=== PATIENT | female | born 1955 | race Caucasian/White ===

== ENCOUNTER 2017-04-01 16:11 | Emergency (ER) | payer BC ==
[2017-04-01 16:17] VITALS: BP 167/75; PULSE 89; RESP 18; TEMP 98.2
[2017-04-01] MEDS ORDERED: KETOROLAC 60 MG/2 ML VIAL IM STA (16:47)
[2017-04-01] MEDS ORDERED: ORPHENADRINE 30 MG/ML 2 ML VIAL IM STA (16:47)
--- NOTE | 2017-04-01 16:53 | ED ---
Extremity Problem HPI - General Chief complaint: Extremity Problem,Nontraumatic Stated complaint: rt knee pain Time Seen by Provider: 04/01/17 16:34 Source: patient, RN notes reviewed, old records reviewed Mode of arrival: ambulatory Limitations: no limitations - History of Present Illness Initial comments: 61-year-old female presents emergency Department chief complaint of increased right knee pain. Patient which was diagnosed with a terminal discussed. Patient states that she is supposed to see a orthopedic physician in approximately 10 days. Patient states the pain became unbearable. She reports she got her meniscus 2 weeks ago when she was going up and down the stairs while moving into a new house. Patient states that she is currently on a pain contract for chronic back pain. She states that she is taking Motrin with very little relief of her pain. Patient denies any numbness tingling, foot or ankle. Denies any significant swelling or decreased range of motion. She just reports is painful and she has to flex and extend her knee.Patient denies any recent fever, chills, shortness of breath, chest pain, back pain, abdominal pain , nausea vomiting, numbness or tingling, dysuria or hematuria, constipation or diarrhea, headaches or visual changes, or any other current symptoms - Related Data Home Medications Medication Instructions Recorded Confirmed ALPRAZolam [Xanax] 2 mg PO HS 04/01/17 04/01/17 ARIPiprazole [Abilify] 5 mg PO DAILY 04/01/17 04/01/17 DULoxetine HCL [Cymbalta] 60 mg PO DAILY 04/01/17 04/01/17 Ibuprofen [Motrin] 200 - 400 mg PO Q6HR PRN 04/01/17 04/01/17 Lisinopril [Zestril] 20 mg PO DAILY 04/01/17 04/01/17 Pantoprazole Sodium [Protonix] 40 mg PO BID 04/01/17 04/01/17 Vytorin (Unknown Dose) 1 tab PO HS 04/01/17 04/01/17 metFORMIN HCL [Glucophage] 500 mg PO BID 04/01/17 04/01/17 oxyCODONE-APAP 10-325MG [Percocet 1 tab PO QID PRN 04/01/17 04/01/17 10-325 mg] sitaGLIPtin [Januvia] 100 mg PO DAILY 04/01/17 04/01/17 Previous Rx's Medication Instructions Recorded Cyclobenzaprine [Flexeril] 10 mg PO TID #12 tab 04/01/17 Naproxen 500 mg PO TID #20 tablet 04/01/17 Allergies Allergy/AdvReac Type Severity Reaction Status Date / Time Penicillins Allergy Rash/Hives Verified 04/01/17 17:02 Review of Systems ROS Statement: Those systems with pertinent positive or pertinent negative responses have been documented in the HPI. ROS Other: All systems not noted in ROS Statement are negative. Past Medical History Past Medical History: Diabetes Mellitus Additional Past Medical History / Comment(s): chronic back pain and neck pain, diverticulosis History of Any Multi-Drug Resistant Organisms: None Reported Additional Past Surgical History / Comment(s): jaw surgery Past Psychological History: No Psychological Hx Reported Smoking Status: Never smoker Past Alcohol Use History: None Reported Past Drug Use History: None Reported General Exam - General Exam Comments Initial Comments: Well-appearing 61-year-old field. No acute distress. Limitations: no limitations General appearance: alert, in no apparent distress Head exam: Present: atraumatic, normocephalic, normal inspection Eye exam: Present: normal appearance, PERRL, EOMI. Absent: scleral icterus, conjunctival injection, periorbital swelling ENT exam: Present: normal exam, mucous membranes moist Neck exam: Present: normal inspection. Absent: tenderness, meningismus, lymphadenopathy Respiratory exam: Present: normal lung sounds bilaterally. Absent: respiratory distress, wheezes, rales, rhonchi, stridor Cardiovascular Exam: Present: regular rate, normal rhythm, normal heart sounds. Absent: systolic murmur, diastolic murmur, rubs, gallop, clicks GI/Abdominal exam: Present: soft, normal bowel sounds. Absent: distended, tenderness, guarding, rebound, rigid Extremities exam: Present: normal inspection, full ROM, normal capillary refill , other (Patient is able to bear weight over her right left knee. Full range of motion noted on the right knee. No significant swelling or bruising noted. Patient has normal sensation distally. Patient is somewhat tender over the medial meniscus, but no significant bruising is noted again.). Absent: tenderness, pedal edema, joint swelling, calf tenderness Back exam: Present: normal inspection Neurological exam: Present: alert, oriented X3, CN II-XII intact Psychiatric exam: Present: normal affect, normal mood Skin exam: Present: warm, dry, intact, normal color. Absent: rash Course Vital Signs 04/01/17 16:12 Temperature 98.2 F Pulse Rate 89 Respiratory 18 Rate Blood Pressure 167/75 O2 Sat by Pulse 99 Oximetry Medical Decision Making - Medical Decision Making 61-year-old female chief complaining of increased right knee pain. Patient was diagnosed with a torn her meniscus. Vision is ambulate in the emergency Department. Full range of motion noted. No significant bruising or swelling noted to the knee. Does have an appointment with orthopedic in approximately 2 weeks. Patient is Patient states that the pain is unbearable. She is currently on a pain contract and receiving Percocet. Discussed that will not write her for further pain medication. Patient will be discharged with naproxen , and Flexeril. Patient is agreeable to treatment plan. Discussed that she has to go to her follow-up appointment. Return parameters were discussed. Disposition Clinical Impression: Right knee pain Disposition: HOME SELF-CARE Condition: Good Instructions: Knee Pain (ED) Additional Instructions: Patient a take the medication as prescribed. Follow-up with your PCP and orthopedic. Return to emergency department if any alarming signs or symptoms occur. Prescriptions: Cyclobenzaprine [Flexeril] 10 mg PO TID #12 tab Naproxen 500 mg PO TID #20 tablet Referrals: Krishna Moya III, MD [Primary Care Provider] - 1-2 days Time of Disposition: 16:51
== END 2017-04-01 17:21 | disposition home or self-care (01) ==
LOC: EC 16:11
DX: M25.561 Pain in right knee (principal); E11.9 Type 2 diabetes mellitus without complications; Z88.0 Allergy status to penicillin; Z79.84 Long term (current) use of oral hypoglycemic drugs; Z79.899 Other long term (current) drug therapy
CPT/HCPCS: 99283; 96372 ×2; J2360; J1885

== ENCOUNTER 2017-04-03 02:50 | Inpatient (IN) | payer BC ==
[2017-04-03] MEDS ORDERED: ONDANSETRON 4 MG/2 ML VIAL IVP PRN (03:26)
[2017-04-03] MEDS ORDERED: NALOXONE 0.4 MG/ML 1 ML VIAL IV PRN ×2 (03:26→12:35)
--- NOTE | 2017-04-03 04:04 | ED ---
General Adult HPI - General Chief complaint: Extremity Injury, Lower Stated complaint: Fall Time Seen by Provider: 04/03/17 02:53 Source: patient, EMS, RN notes reviewed, old records reviewed Mode of arrival: EMS Limitations: no limitations - History of Present Illness Initial comments: 61-year-old female presents as transfer from outside hospital for orthopedic evaluation. Patient was walking and states She tripped and fell on her right side. There is no head or neck trauma. Patient was found to have a right subtrochanteric femur fracture and a right intra-articular radial fracture. Patient denies any chest pain or shortness of breath. Denies any palpitations. Fall was mechanical in nature. She is with her right knee over the past week. Denies any other injury. Pain has been severe. These injuries occurred at approximately 9 PM. - Related Data Home Medications Medication Instructions Recorded Confirmed ALPRAZolam [Xanax] 2 mg PO HS 04/01/17 04/03/17 ARIPiprazole [Abilify] 5 mg PO DAILY 04/01/17 04/03/17 DULoxetine HCL [Cymbalta] 60 mg PO DAILY 04/01/17 04/03/17 Ibuprofen [Motrin] 200 - 400 mg PO Q6HR PRN 04/01/17 04/03/17 Lisinopril [Zestril] 20 mg PO DAILY 04/01/17 04/03/17 Pantoprazole Sodium [Protonix] 40 mg PO BID 04/01/17 04/03/17 Vytorin (Unknown Dose) 1 tab PO HS 04/01/17 04/03/17 metFORMIN HCL [Glucophage] 500 mg PO BID 04/01/17 04/03/17 oxyCODONE-APAP 10-325MG [Percocet 1 tab PO QID PRN 04/01/17 04/03/17 10-325 mg] sitaGLIPtin [Januvia] 100 mg PO DAILY 04/01/17 04/03/17 Previous Rx's Medication Instructions Recorded Cyclobenzaprine [Flexeril] 10 mg PO TID #12 tab 04/01/17 Naproxen 500 mg PO TID #20 tablet 04/01/17 Allergies Allergy/AdvReac Type Severity Reaction Status Date / Time Penicillins Allergy Rash/Hives Verified 04/03/17 02:55 Review of Systems ROS Statement: Those systems with pertinent positive or pertinent negative responses have been documented in the HPI. ROS Other: All systems not noted in ROS Statement are negative. Past Medical History Past Medical History: Diabetes Mellitus Additional Past Medical History / Comment(s): chronic back pain and neck pain, diverticulosis History of Any Multi-Drug Resistant Organisms: None Reported Additional Past Surgical History / Comment(s): jaw surgery Past Psychological History: No Psychological Hx Reported Smoking Status: Never smoker Past Alcohol Use History: None Reported Past Drug Use History: None Reported General Exam Limitations: no limitations General appearance: alert, in no apparent distress Head exam: Present: atraumatic, normocephalic Eye exam: Present: normal appearance, PERRL ENT exam: Present: normal exam, mucous membranes moist Neck exam: Present: normal inspection. Absent: tenderness Respiratory exam: Present: normal lung sounds bilaterally, respiratory distress Cardiovascular Exam: Present: regular rate, normal rhythm GI/Abdominal exam: Present: soft. Absent: distended Extremities exam: Present: tenderness, normal capillary refill, pedal edema, other (Right lower extremity is externally rotated and shortened, DP pulse 2+. Right wrist has tenderness to palpation, splint). Absent: full ROM Neurological exam: Present: alert, oriented X3, CN II-XII intact. Absent: motor sensory deficit Psychiatric exam: Present: normal affect, normal mood Skin exam: Present: warm, dry, intact. Absent: cyanosis, diaphoretic Course Vital Signs 04/03/17 02:51 Temperature 97.9 F Pulse Rate 91 Respiratory 20 Rate Blood Pressure 169/76 O2 Sat by Pulse 98 Oximetry EKG Findings - EKG Comments: EKG Findings:: EKG shows normal sinus rhythm, ventricular 69, para 146, QRS duration 84, QTC 4:30 Medical Decision Making - Medical Decision Making 61-year-old female presenting as a transfer with right radial wrist fracture and right subtrochanteric femur fracture. Patient is status post fall which was mechanical in nature. Case is discussed with orthopedic surgery they will accept the admission for operative repair. Patient is kept nothing by mouth. Medicines placed on consult for clearance. Laboratory studies from outside hospital did reveal elevated white blood cell count which is likely reactive 15.0, hemoglobin stable at 13.9, creatinine 1.1, potassium 4.1, sodium 136. Repeat laboratory studies and preoperative labs will be obtained in the morning. Chest x-ray shows no acute intrathoracic processes. EKG is normal sinus rhythm, nonischemic. Diagnosis: Right subtrochanteric femur fracture, right intra-articular radial fracture Disposition Clinical Impression: Fracture of hip, Wrist fracture Disposition: ADMITTED IP TO THIS HOSP Condition: Stable Referrals: Krishna Moya III, MD [Primary Care Provider] - 1-2 days Decision to Admit Reason: Admit from EC Decision Date: 04/03/17 Decision Time: 04:03
[2017-04-03] MEDS: SODIUM CHLORIDE 0.9% 1,000 ML IV SCH ×3 (04:27→16:00)
[2017-04-03] MEDS: HYDROmorphone 1 MG/ML 1 ML SYRINGE IV PRN ×2 (04:27→08:28)
--- NOTE | 2017-04-03 04:35 | XR ---
EXAM: XR Chest, 1 View CLINICAL HISTORY: Pain TECHNIQUE: Frontal view of the chest. COMPARISON: No relevant prior studies available. FINDINGS: Lungs: Unremarkable. No consolidation. Pleural space: Unremarkable. No pneumothorax. Heart: Mildly prominent cardiomediastinal silhouette. Mediastinum: See above. Bones/joints: Unremarkable. IMPRESSION: No acute findings.
[2017-04-03] MEDS: LISINOPRIL 20 MG TAB PO SCH (08:35)
--- NOTE | 2017-04-03 09:15 | P.HPOR ---
<Yoly Nathan L - Last Filed: 04/03/17 09:11> History of Present Illness H&P Date: 04/03/17 This is a 61-year-old female who is admitted to orthopedics for right subtrochanteric hip fracture. Patient states she was diagnosed with a torn meniscus in the right knee one or 2 weeks ago. Patient states when she was walking down the stairs last night and her right knee buckled causing her to land on her right hip. Patient states she is unable to walk after this. Patient also states she had pain in the right wrist after this fall. Patient was transferred to the [facility] emergency room via EMS and diagnosed with a right hip fracture and right wrist fracture. Patient was transferred to [facility] for orthopedic evaluation. Patient denies any numbness, weakness, tingling in the right upper or lower extremities. Patient does complain of right wrist pain but states this is nothing compared to the pain she feels in her right hip. Patient states her right knee is sore but it's at baseline for her. Currently patient complains of right hip pain but denies neck pain, bilateral shoulder pain, left lower extremity pain, lower back pain, fever/chills, shortness of breath. Review of Systems See HPI. Past Medical History Past Medical History: Diabetes Mellitus Additional Past Medical History / Comment(s): chronic back pain and neck pain, diverticulosis History of Any Multi-Drug Resistant Organisms: None Reported Additional Past Surgical History / Comment(s): jaw surgery Past Anesthesia/Blood Transfusion Reactions: No Reported Reaction Past Psychological History: No Psychological Hx Reported Smoking Status: Former smoker Past Alcohol Use History: None Reported Past Drug Use History: None Reported Medications and Allergies Home Medications Medication Instructions Recorded Confirmed Type ALPRAZolam [Xanax] 2 mg PO HS 04/01/17 04/03/17 History ARIPiprazole [Abilify] 5 mg PO DAILY 04/01/17 04/03/17 History Cyclobenzaprine [Flexeril] 10 mg PO TID #12 tab 04/01/17 04/03/17 Rx DULoxetine HCL [Cymbalta] 60 mg PO DAILY 04/01/17 04/03/17 History Ibuprofen [Motrin] 200 - 400 mg PO Q6HR PRN 04/01/17 04/03/17 History Lisinopril [Zestril] 20 mg PO DAILY 04/01/17 04/03/17 History Naproxen 500 mg PO TID #20 tablet 04/01/17 04/03/17 Rx Pantoprazole Sodium [Protonix] 40 mg PO BID 04/01/17 04/03/17 History Vytorin (Unknown Dose) 1 tab PO HS 04/01/17 04/03/17 History metFORMIN HCL [Glucophage] 500 mg PO AC-BID 04/01/17 04/03/17 History oxyCODONE-APAP 10-325MG [Percocet 1 tab PO QID PRN 04/01/17 04/03/17 History 10-325 mg] sitaGLIPtin [Januvia] 100 mg PO DAILY 04/01/17 04/03/17 History Allergies Allergy/AdvReac Type Severity Reaction Status Date / Time Penicillins Allergy Rash/Hives Verified 04/03/17 08:21 Physical Examination On exam patient is in no acute distress and is alert and oriented 3. Right lower extremity is shortened and externally rotated. There is tenderness palpation of the right hip. No ecchymosis, swelling or erythema. There is tenderness to palpation of the right knee. No effusion, swelling, erythema or ecchymosis. Posterior tibial pulse is 2+. Sensation intact. Patient has full foot and ankle motion. Neurovascular status to the right lower extremity is intact. On exam of the right wrist is tenderness palpation. Patient's splint is intact. Patient has full range of motion of the right hand. Neurovascular status intact. Radial pulse 2+. There is no tenderness to palpation of the neck, bilateral shoulders, left upper extremity, left lower extremity. Patient has good range of motion of the left lower extremity without pain. Patient has full foot and ankle motion of the left lower extremity. Neurovascular status and sensation intact. Results X-rays of the right hip are reviewed showing subtrochanteric fracture of the right femur. X-rays of the right wrist are reviewed showing fracture of the radial styloid of the right wrist. Assessment and Plan (1) Fracture of hip Status: Acute (2) Wrist fracture Status: Acute (3) Right knee pain Status: Acute Plan: #1. Medical clearance is pending. Patient is scheduled to be taken to the OR today for surgical fixation of the right hip per Dr. Thompson. #2. Patient is to remain NPO. #3. Continue splint to right wrist. <Dwight Thompson - Last Filed: 04/03/17 10:16> Assessment and Plan Plan: I agree with the above history, physical, and plan. The patient is a prior patient of Dr. Lincoln who has been managing a medial meniscus tear in the right knee. The patient denies any pre-existing right hip pain. She lives alone and is a community ambulator without assisted device. Yesterday she lost her balance and fell resulting in an isolated right hip and wrist injury. She was seen at an outside hospital. The emergency department here at [facility] accepted her as a transfer without contacting me until she was in our ER. She was admitted under my care. She was seen by internal medicine and cleared for surgery. I met with the patient this morning to examine her and discuss her treatment options. We discussed treating her radial styloid fracture on the right wrist nonoperatively. We discussed treating her hip fracture with a long intramedullary device. We had a lengthy discussion on the potential risks and complications of surgery prior to surgery including but not limited to risk of anesthesia, risk of superficial infection, risk of deep infection, risk of delayed wound healing, risk of intraoperative fracture, risk of postoperative fracture, risk of malreduction of the fracture, risk of symptomatically hardware , risk of nonunion, risk of difficulty and bleeding following surgery, risk of inability to ambulate following surgery, risk of need for further surgery, risk of failure of the implant, risk of implant failure, risk of need for amputation , risk of postoperative medical complications including DVT, fatal PE, acute coronary event, stroke, pressure sore, urinary tract infection, pneumonia and possibly . The patient understands these potential complications and provided her verbal and written consent to go forward with surgery.
--- NOTE | 2017-04-03 10:01 | P.CONS ---
History of Present Illness - Reason for Consult Consult date: 04/03/17 Medical clearance for orthopedic procedure - History of Present Illness This is a 61-year-old female with history of essential hypertension, mitral valve prolapse with mild mitral regurgitation is admitted to the hospital after sustaining a fall. Patient apparently was trying to walk up stairs and fell backwards. Patient injured her wrist and her right hip. Patient currently has had another trauma to her right knee with the meniscal tear. Patient was noted to have a fracture of the hip patient was admitted to the orthopedic service. Patient denies any current tobacco use however does have a previous history of it. Was able to walk about 1 mile without any chest pains difficulty breathing. Patient's EKG does not show any ST-T wave changes however meets criteria for left ventricular hypertrophy due to hypertensive disease At this time patient denies having any chest pain difficulty breathing headaches blurry vision nausea vomiting abdominal pain diarrhea. Patient has a Solo catheter in place Chest x-ray did not reveal any acute abnormalities in the emergency room. Review of Systems All systems: negative (Noted in HPI) Past Medical History Past Medical History: Diabetes Mellitus Additional Past Medical History / Comment(s): chronic back pain and neck pain, diverticulosis History of Any Multi-Drug Resistant Organisms: None Reported Additional Past Surgical History / Comment(s): jaw surgery Past Anesthesia/Blood Transfusion Reactions: No Reported Reaction Past Psychological History: No Psychological Hx Reported Smoking Status: Former smoker Past Alcohol Use History: None Reported Past Drug Use History: None Reported Medications and Allergies Home Medications Medication Instructions Recorded Confirmed Type ALPRAZolam [Xanax] 2 mg PO HS 04/01/17 04/03/17 History ARIPiprazole [Abilify] 5 mg PO DAILY 04/01/17 04/03/17 History Cyclobenzaprine [Flexeril] 10 mg PO TID #12 tab 04/01/17 04/03/17 Rx DULoxetine HCL [Cymbalta] 60 mg PO DAILY 04/01/17 04/03/17 History Ibuprofen [Motrin] 200 - 400 mg PO Q6HR PRN 04/01/17 04/03/17 History Lisinopril [Zestril] 20 mg PO DAILY 04/01/17 04/03/17 History Naproxen 500 mg PO TID #20 tablet 04/01/17 04/03/17 Rx Pantoprazole Sodium [Protonix] 40 mg PO BID 04/01/17 04/03/17 History Vytorin (Unknown Dose) 1 tab PO HS 04/01/17 04/03/17 History metFORMIN HCL [Glucophage] 500 mg PO AC-BID 04/01/17 04/03/17 History oxyCODONE-APAP 10-325MG [Percocet 1 tab PO QID PRN 04/01/17 04/03/17 History 10-325 mg] sitaGLIPtin [Januvia] 100 mg PO DAILY 04/01/17 04/03/17 History Allergies Allergy/AdvReac Type Severity Reaction Status Date / Time Penicillins Allergy Rash/Hives Verified 04/03/17 08:21 Physical Exam Vitals: Vital Signs Temp Pulse Pulse Resp BP BP Pulse Ox 04/03/17 07:00 98.2 F 78 16 157/71 96 04/03/17 04:59 98.1 F 72 16 167/67 90 L 04/03/17 04:29 86 16 169/76 93 L 04/03/17 02:51 97.9 F 91 20 169/76 98 Intake and Output 04/02/17 04/03/17 04/03/17 22:59 06:59 14:59 Intake Total 100 Balance 100 Intake: Intake, IV Titration 100 Amount Sodium Chloride 0.9% 1, 100 000 ml @ 100 mls/hr IV . Q[facility]H [facility] Rx#:[id number] Other: Voiding Method Indwelling Catheter Weight 83.915 kg Appearance alert oriented 3 Neck is supple no JVD Heart a trace systolic murmur appreciated at the apex regular rate and rhythm Lungs good air movement clear to auscultation bilaterally no rhonchi wheezing or crackles Abdomen soft nontender no organomegaly Solo catheter in place 1+ pitting edema bilaterally Right lower extremity is inverted tender to palpation with joint flexion Neuro is able to move all 4 extremities. No focal deficits could be appreciated. Assessment and Plan Plan: #1 mechanical fall status post right hip fracture #2 essential hypertension #3 dyslipidemia #4 mitral valve prolapse #5 mitral regurgitation secondary to above #6 remote history of tobacco use #7 right knee meniscal tear Plan Due to the type of procedure and the urgent nature of the patient is clear for surgery from a cardiovascular risk factor patient does not need any additional workup This was discussed with the patient as well. Postoperative DVT prophylaxis is also recommended Blood pressures are stable medications were reviewed and appropriately reconciled. Thank you for the consultation we'll follow patient along with you
[2017-04-03] MEDS: metFORMIN 500 MG TAB PO SCH ×2 (10:22→19:55)
[2017-04-03] MEDS: LINAGLIPTIN 5 MG TABLET PO SCH (10:22)
[2017-04-03 10:26] LABS: Glucose,Whole Blood 124 mg/dL (75-99)
[2017-04-03] MEDS ORDERED: LACTATED RINGERS 750 ML IV ONE (10:28)
[2017-04-03] MEDS ORDERED: PROPOFOL 10 MG/ML 20 ML VIAL IV ONE (10:28)
[2017-04-03] MEDS ORDERED: LIDOCAINE 1% INJ 10MG/ML (20 ML MDV) ONE (10:28)
[2017-04-03] MEDS ORDERED: HYDROmorphone (PF) 1 MG/ML ONE (10:28)
[2017-04-03] MEDS ORDERED: MIDAZOLAM 2 MG/2 ML VIAL ONE (10:28)
[2017-04-03] MEDS ORDERED: PHENYLEPHRINE-0.9% NACL SYG 1 MG/10 ML SYRINGE ONE (10:28)
[2017-04-03] MEDS ORDERED: fentaNYL (PF) 50 MCG/ML 2 ML AMP ONE (10:28)
[2017-04-03] MEDS ORDERED: ONDANSETRON 4 MG/2 ML VIAL ONE (10:28)
[2017-04-03] MEDS ORDERED: ePHEDrine SULFATE/0.9% NACL/PF 50 MG/5 ML SYRINGE IV ONE (10:28)
[2017-04-03] MEDS ORDERED: SODIUM CHLORIDE 0.9% 50 ML with CLINDAMYCIN 600 MG IV ONE ×2 (10:41)
[2017-04-03] MEDS ORDERED: CLINDAMYCIN 600 MG in SODIUM CHLORIDE 0.9% 1,000 ML IRRIGATION ONE (11:07)
[2017-04-03] MEDS ORDERED: LACTATED RINGERS 1,000 ML IV ONE (11:31)
[2017-04-03 12:30] LABS: Glucose,Whole Blood 178 mg/dL (75-99)
[2017-04-03] MEDS ORDERED: INSULIN LISPRO (humaLOG) 300 UNIT/3 ML VIAL SQ ONE (12:31)
[2017-04-03] MEDS ORDERED: HYDROmorphone 1 MG/ML 1 ML SYRINGE IVP PRN ×2 (12:35)
[2017-04-03] MEDS ORDERED: HYDROcodone/APAP 5-325MG 1 EACH TAB PO PRN (12:35)
--- NOTE | 2017-04-03 12:35 | P.OP ---
Date of Procedure: 04/03/17 Preoperative Diagnosis: 1. Right subtrochanteric femur fracture 2. Right radial styloid fracture, minimally displaced Postoperative Diagnosis: Same Procedure(s) Performed: 1. Operative fixation of right subtrochanteric femur fracture with long cephalo -medullary nail 2. Nonoperative management of right radial styloid fracture Implants: [employer]ynthe[employer] long TFN nail 380 mm x 10 mm diameter, 90 mm helical blade, 44 mm distal interlocking screw Anesthesia: GETA Surgeon: Dwight Thompson Estimated Blood Loss (ml): 30 IV fluids (ml): 1,000 Urine output (ml): 50 Pathology: none sent Condition: stable Disposition: PACU Indications for Procedure: The patient is a 61-year-old female who was transferred from an outside hospital following a ground-level fall that resulted in a displaced subtrochanteric femur fracture and a right radial styloid fracture. I met with the patient preoperatively to discuss treatment. My recommendation was to address her subtrochanteric femur fracture with a long intramedullary hip screw. We discussed the potential risks and complication of surgery including but not limited to risk of anesthesia, risk of superficial infection, risk of deep infection, risk of delayed wound healing, risk of superficial wound necrosis, risk of intraoperative fracture, risk of postoperative fracture, risk of malreduction, risk of nonunion, risk of delayed union, risk of hardware failure, risk of chronic pain, risk of chronic swelling, risk of rotational deformity of the lower extremity, risk of leg length discrepancy, risk of need for further surgery, risk of symptomatically hardware, risk of inability to ambulate following surgery, and risk of postoperative medical complications including DVT, fatal PE, pneumonia, urinary tract infection, stroke, acute coronary event, and possibly . The patient understands these potential risks and provided her verbal and written consent to go forward with surgery. In terms of the patient's wrist fracture I recommended nonsurgical treatment with a removable wrist brace and a 5 pound weight lifting restriction. Operative Findings: Description of Procedure: The patient was identified in preoperative holding and the correct right leg was marked with my initials. I reviewed the consent form with the patient and all of her questions were answered. The patient was then brought back to the operating room and a general anesthetic was administered while she was on the gurney. The patient was then transferred onto a fracture table. All bony prominences were well-padded. The left unaffected leg was flexed, abductor did and placed in a leg hensley. A perineal post was placed. The right leg was placed into the boot of the fracture table. The right arm was draped across the body and the torso was shifted toward the left. Preoperative antibiotics were administered. A timeout was then performed identifying the correct patient , operative extremity, and procedure. At this point a closed reduction was performed on the fracture table. C-arm fluoroscopy was brought in to verify reduction. Using a combination of longitudinal traction and adduction and the fracture was brought out to length. The distal shaft was still displaced laterally and I adjusted rotation until the rotation appeared to be close. The fracture appeared to be nearly reduced in both the AP and lateral planes. At this point the leg was prepped and draped in standard sterile fashion. I began by making a small stab incision proximal to the greater trochanter in line with the femur. A guidepin was placed through the subcutaneous tissue down to the tip of the greater trochanter. The guidepin was placed just medial to the tip of the greater trochanter on the AP view and anterior on the lateral view centered with the femur. The guide pin was driven down to the level of lesser trochanter. An opening reamer was used to gain access to the proximal femoral canal. At this point a small stab incision was made over the lateral aspect of the femur just distal to the fracture. A ball spike pusher was placed through the subcutaneous tissue down to the level of the lateral cortex of the femoral shaft. A medially directed force was applied to the femur with the ball spiked pusher. A long ball-tipped guidewire was then placed through the previously created hole in the greater trochanter and directed to the level of the fracture. The wire was gently advanced past the fracture and down to the distal femur. The wire was centered in both the AP and lateral planes. The guidewire measured just under 400 mm I elected to use a 380 millimeter nail. At this point I began reaming starting with an 8 mm reamer and advancing in 1 mm increments until chatter was obtained with a 10 mm reamer. I then sequentially reamed in 0.5 mm increments up to an 11.5 mm reamer. A 380 mm x 10 mm nail was dispensed. I verified that the targeting arm was securely attached and at the trocar for the helical blade lined up with the appropriate slot on the nail. The nail was then gently inserted over the guidewire starting with the targeting arm anteriorly. With light blows of the mallet the nail was brought down to the level of fracture and gently advanced across the fracture under C-arm guidance. The fracture did not appear to significantly displaced as the nail was advanced. I then slowly rotated the targeting arm laterally and seated the nail distally. The ball-tipped guidewire was then removed through the nail. The targeting arm attachment for the helical blade was attached and brought down to the skin over the lateral aspect of the hip. I was able to use the previously made stab incision. The trocar was brought down to the lateral aspect of the femur. A guidewire was brought up into the femoral head centered on the AP view and slightly anterior on the lateral. I measured a 90 mm helical blade. I then reamed and placed a 90 mm helical blade. The set screw was brought all the way down proximally. At this point attention was turned distally to place an interlocking screw using the freehand technique. Per for circles were obtained and an interlocking screw was placed through the oblong hole. At this point the targeting arm was removed proximally. Final x-rays including AP and lateral views of the proximal femur and AP and lateral views of the distal femur were obtained. The fracture appeared to be reduced and the nail appeared to be in appropriate position. All wounds were then copiously irrigated. The fascia was closed with 0 Vicryl. The deep subcutaneous/tissue was closed with 2-0 Vicryl. Skin was closed with chen. I verified that all instrument sponge and sharp counts were correct. Sterile dressings consisting of Adaptic, 4 x 4 and medium Tegaderms were applied over all the incisions. The drapes were taken down, the patient was carefully taken out of the fracture table, and transferred to a gurfort thompson. She was brought to PACU having time of the procedure well. Plan: The patient can weight-bear as tolerated on her right leg. She'll receive 2 doses of postoperative antibiotics. Dressing change per protocol. I would like to treat her with Lovenox 40 mg daily 4 weeks for DVT prophylaxis. Physical therapy for gait training and mobilization. Nonoperative management of her right radial styloid fracture with a removable brace and a 5 pound weight lifting restriction.
[2017-04-03] MEDS ORDERED: KETOROLAC 30 MG/ML 1 ML VIAL IVP ONE (12:49)
--- NOTE | 2017-04-03 12:56 | FL ---
Fluoroscopy INDICATION: Pain FINDINGS: Fluoroscopy time: 240 seconds. Images obtained: 12. IMPRESSIONS: 1. Documentation of fluoroscopy.
--- NOTE | 2017-04-03 12:56 | XR ---
EXAMINATION TYPE: XR femur RT DATE OF EXAM: 04/03/2017 COMPARISON: NONE HISTORY: Hardware placement TECHNIQUE: 4 minutes of fluoroscopy time was provided for right hip fracture repair. FINDINGS: 12 images are obtained. IMPRESSION: 1. Fluoroscopy for procedure documentation.
[2017-04-03 13:23] LABS: Basophils % (A) 0 %; CH 31.2; CHCM 32.7; Eosinophils # (A) 0.2 k/uL (0-0.7); Eosinophils % (A) 1 %; HCT 39.3 % (34.0-46.0); HDW 2.59; HGB 13.3 gm/dL (11.4-16.0); Luc # (Auto) 0.26; Luc % (Auto) 2; Lymphocytes # (A) 1.4 k/uL (1.0-4.8); Lymphocytes % (A) 10 %; MCH 32.6 pg (25.0-35.0); MCV 95.8 fL (80.0-100.0); Monocytes # (A) 0.8 k/uL (0-1.0); Monocytes % (A) 6 %; Neutrophils # (A) 11.6 k/uL (1.3-7.7); Neutrophils % (A) 81 %; WBC 14.2 k/uL (3.8-10.6); WBC (Perox) 15.41
[2017-04-03] MEDS: PANTOPRAZOLE 40 MG/10 ML VIAL IV SCH (14:40)
[2017-04-03] MEDS: HYDROcodone/APAP 5-325MG 1 EACH TAB PO PRN ×2 (16:42→22:32)
[2017-04-03] MEDS: CALCIUM CARBONATE 500 MG CHEWABLE PO SCH ×2 (16:43→19:55)
[2017-04-03] MEDS: CLINDAMYCIN 900 MG in DEXTROSE 5% IN WATER 50 ML IVPB SCH ×4 (17:04→23:49)
[2017-04-03 17:23] LABS: Glucose,Whole Blood 112 mg/dL (75-99)
--- NOTE | 2017-04-03 17:28 | P.PN ---
Subjective Patient is doing well with no complaints. The pain in her right thigh is well- controlled. She said her thigh feels better than it did before surgery. She denies chest pain or shortness of breath. Objective - Vital Signs Vital signs: Vital Signs Temp 97.8 F 04/03/17 13:30 Pulse 104 H 04/03/17 15:30 Resp 16 04/03/17 13:30 BP 144/72 04/03/17 15:30 Pulse Ox 94 L 04/03/17 13:30 Intake & Output 04/02/17 04/03/17 04/03/17 18:59 06:59 18:59 Intake Total 100 1655 Output Total 480 Balance 100 1175 Weight 83.915 kg Intake: IV 1155 Intake, IV Titration 100 500 Amount Sodium Chloride 0.9% 1, 100 500 000 ml @ 100 mls/hr IV . Q10H [facility] Rx#:[id number] Output: Urine 450 Estimated Blood Loss 30 Other: Voiding Method Indwelling Catheter Indwelling Catheter - Exam The patient is in no apparent distress and is alert and oriented 3. A focused examination of the right lower extremity was conducted. On inspection of the right leg the dressings over the lateral aspect of her thigh are clean and dry with no saturated blood or drainage. Her thigh is soft and mildly tender. Distally her foot is warm and well perfused with brisk capillary refill. Sensation is intact to light touch throughout her right foot. She is able to actively plantarflex and dorsiflex her ankles and her toes. - Labs CBC & Chem 7: 04/03/17 08:58 Labs: Abnormal Lab Results - Last 24 Hours (Table) 04/03/17 04/03/17 04/03/17 Range/Units 08:58 10:23 12:27 WBC 14.2 H (3.8-10.6) k/uL Neutrophils # 11.6 H (1.3-7.7) k/uL POC Glucose (mg/dL) 124 H 178 H (75-99) mg/dL 04/03/17 Range/Units 17:18 WBC (3.8-10.6) k/uL Neutrophils # (1.3-7.7) k/uL POC Glucose (mg/dL) 112 H (75-99) mg/dL Assessment and Plan (1) Fracture of hip Status: Acute Plan: Postoperative check status post operative fixation of right subtrochanteric femur fracture with long cephalo-medullary nail. 1. Toe-touch weightbearing right lower extremity 2. 2 doses postoperative antibiotics 3. DVT prophylaxis with Lovenox 40 mg daily 4 weeks 4. Bone health with calcium and vitamin D supplementation 5. 25 hydroxy vitamin D level pending 6. Appreciate internal medicine assistance with perioperative medical management and preoperative clearance 7. Physical therapy for mobilization and gait training 8. Dressing changes per protocol 9. Discharge planning
[2017-04-03] MEDS: INSULIN LISPRO (humaLOG) 300 UNIT/3 ML VIAL SQ SCH ×2 (17:55→20:49)
[2017-04-03] MEDS: ASCORBIC ACID 500 MG TAB PO SCH (19:55)
[2017-04-03 20:18] LABS: Glucose,Whole Blood 181 mg/dL (75-99)
[2017-04-04] MEDS: HYDROcodone/APAP 5-325MG 1 EACH TAB PO PRN ×4 (04:37→21:24)
[2017-04-04 06:52] LABS: Glucose,Whole Blood 127 mg/dL (75-99)
[2017-04-04 07:02] LABS: Basophils % (A) 0 %; CH 31.6; CHCM 33.9; Eosinophils # (A) 0.2 k/uL (0-0.7); Eosinophils % (A) 2 %; HCT 31.4 % (34.0-46.0); HDW 2.54; HGB 10.5 gm/dL (11.4-16.0); Luc # (Auto) 0.22; Luc % (Auto) 2; Lymphocytes # (A) 0.9 k/uL (1.0-4.8); Lymphocytes % (A) 9 %; MCH 31.3 pg (25.0-35.0); MCHC 33.4 g/dL (31.0-37.0); MCV 93.7 fL (80.0-100.0); Mean Platelet Volume 7.6; Monocytes # (A) 0.5 k/uL (0-1.0); Monocytes % (A) 6 %; Neutrophils # (A) 7.7 k/uL (1.3-7.7); Neutrophils % (A) 81 %; RBC 3.35 m/uL (3.80-5.40); RDW 12.8 % (11.5-15.5); WBC 9.5 k/uL (3.8-10.6); WBC (Perox) 9.86
[2017-04-04 07:12] LABS: ALT 25 U/L (9-52); AST 25 U/L (14-36); Alkaline Phosphatase 69 U/L (38-126); Anion Gap 7 mmol/L; Blood Urea Nitrogen 11 mg/dL (7-17); Calcium 8.8 mg/dL (8.4-10.2); Carbon Dioxide 24 mmol/L (22-30); Chloride 106 mmol/L (98-107); Glucose 111 mg/dL (74-99); Non-African American GFR(MDRD) >60 (>60 ml/min/1.73 sqM); Potassium 4.1 mmol/L (3.5-5.1); Sodium 137 mmol/L (137-145); Total Bilirubin 0.8 mg/dL (0.2-1.3); Total Protein 5.2 g/dL (6.3-8.2)
[2017-04-04 07:19] LABS: INR 1.1 (<1.2); Prothrombin Time 11.2 sec (9.0-12.0)
[2017-04-04 07:44] LABS: Hemoglobin A1C 6.6 % (4.2-6.1)
[2017-04-04] MEDS: INSULIN LISPRO (humaLOG) 300 UNIT/3 ML VIAL SQ SCH ×4 (08:17→21:27)
[2017-04-04] MEDS: ENOXAPARIN 40 MG/0.4 ML SYRINGE SQ SCH (08:23)
[2017-04-04] MEDS: LINAGLIPTIN 5 MG TABLET PO SCH (08:23)
[2017-04-04] MEDS: PANTOPRAZOLE 40 MG/10 ML VIAL IV SCH (08:23)
[2017-04-04] MEDS: metFORMIN 500 MG TAB PO SCH ×2 (08:23→21:26)
[2017-04-04] MEDS: CALCIUM CARBONATE 500 MG CHEWABLE PO SCH ×3 (08:23→21:27)
[2017-04-04] MEDS: LISINOPRIL 20 MG TAB PO SCH (08:23)
[2017-04-04] MEDS: ASCORBIC ACID 500 MG TAB PO SCH ×2 (08:23→21:26)
[2017-04-04] MEDS: SODIUM CHLORIDE 0.9% 1,000 ML IV SCH ×2 (08:24→21:24)
--- NOTE | 2017-04-04 08:39 | P.PN ---
Subjective Principal diagnosis: Right hip fracture, right wrist fracture, status post operative fixation of right subtrochanteric femur fracture. This is a pleasant 61-year-old female who is status post operative fixation of right subtrochanteric femur fracture. This is postoperative day #1. Patient states her pain is well-controlled in the right hip and the right wrist. Patient is tolerating the wrist splint well. Patient does complain of some right ankle pain today. Patient denies any numbness, weakness, tingling, calf tenderness, shortness of breath or chest pain. Objective - Vital Signs Vital signs: Vital Signs Temp 98.2 F 04/04/17 08:00 Pulse 61 04/04/17 08:00 Resp 16 04/04/17 08:00 BP 170/64 04/04/17 08:00 Pulse Ox 91 L 04/04/17 08:00 Intake & Output 04/03/17 04/04/17 04/04/17 18:59 06:59 18:59 Intake Total 1655 1900 Output Total 480 2200 Balance 1175 -300 Intake: IV 1155 Intake, IV Titration 500 900 Amount Clindamycin 900 mg In 100 Dextrose 5% in Water 50 ml @ 100 mls/hr IVPB Q6HR [facility] Rx#:[id number] Sodium Chloride 0.9% 1, 500 800 000 ml @ 100 mls/hr IV . Q10H [facility] Rx#:[id number] Oral 1000 Output: Urine 450 2200 Estimated Blood Loss 30 Other: Voiding Method Indwelling Catheter Indwelling Catheter - Exam On exam patient is in no acute distress and is alert and oriented 3. The dressings over the right hip incisions are intact with no drainage present. Calf is soft and nontender. Patient has full foot and ankle motion. There is some pain with right ankle motion. There is some tenderness to palpation over the lateral aspect of the right ankle and over the ATFL. There is mild swelling to the right foot and ankle. No ecchymosis. Sensation intact. Dorsalis pedis pulse 2+. On exam of the right wrist there is some mild swelling and ecchymosis over the dorsal aspect of the right wrist. There is tenderness to palpation over the radial aspect of the right wrist. Patient has full hand and finger motion. Neurovascular status intact. Capillary refill is normal at less than 2 seconds. - Labs CBC & Chem 7: 04/04/17 06:29 04/04/17 06:29 Labs: Abnormal Lab Results - Last 24 Hours (Table) 04/03/17 04/03/17 04/03/17 Range/Units 08:58 10:23 12:27 WBC 14.2 H (3.8-10.6) k/uL RBC (3.80-5.40) m/uL Hgb (11.4-16.0) gm/dL Hct (34.0-46.0) % Neutrophils # 11.6 H (1.3-7.7) k/uL Lymphocytes # (1.0-4.8) k/uL Glucose (74-99) mg/dL POC Glucose (mg/dL) 124 H 178 H (75-99) mg/dL Hemoglobin A1c (4.2-6.1) % Total Protein (6.3-8.2) g/dL Albumin (3.5-5.0) g/dL 04/03/17 04/03/17 04/04/17 Range/Units 17:18 20:16 06:29 WBC (3.8-10.6) k/uL RBC (3.80-5.40) m/uL Hgb (11.4-16.0) gm/dL Hct (34.0-46.0) % Neutrophils # (1.3-7.7) k/uL Lymphocytes # (1.0-4.8) k/uL Glucose (74-99) mg/dL POC Glucose (mg/dL) 112 H 181 H (75-99) mg/dL Hemoglobin A1c 6.6 H (4.2-6.1) % Total Protein (6.3-8.2) g/dL Albumin (3.5-5.0) g/dL 04/04/17 04/04/17 04/04/17 Range/Units 06:29 06:29 06:50 WBC (3.8-10.6) k/uL RBC 3.35 L (3.80-5.40) m/uL Hgb 10.5 L (11.4-16.0) gm/dL Hct 31.4 L (34.0-46.0) % Neutrophils # (1.3-7.7) k/uL Lymphocytes # 0.9 L (1.0-4.8) k/uL Glucose 111 H (74-99) mg/dL POC Glucose (mg/dL) 127 H (75-99) mg/dL Hemoglobin A1c (4.2-6.1) % Total Protein 5.2 L (6.3-8.2) g/dL Albumin 3.1 L (3.5-5.0) g/dL Assessment and Plan (1) Fracture of hip Status: Acute (2) Wrist fracture Status: Acute (3) Right knee pain Status: Acute Plan: #1. Toe-touch weightbearing to the right lower extremity. #2. Continue DVT prophylaxis with Lovenox 40 mg daily 4 weeks. #3. Appreciate input from internal medicine. #4. Continue physical therapy. #5. Continue right wrist splint. #6. Daily dressing changes. #7. X-rays of the right ankle are pending. #8. Discharge planning
--- NOTE | 2017-04-04 09:17 | XR ---
EXAMINATION TYPE: XR ankle complete RT DATE OF EXAM: 04/04/2017 CLINICAL HISTORY: Right ankle pain after recent fall injury. TECHNIQUE: Portable Frontal, lateral and oblique images of the right ankle are obtained. COMPARISON: None. FINDINGS: There is no acute fracture/dislocation evident in the right ankle. The ankle mortise appe ars within normal limits. There is small size inferior calcaneal spur. The overlying soft tissue appe ars unremarkable. IMPRESSION: There is no acute fracture or dislocation in the right ankle.
[2017-04-04] MEDS: CHOLECALCIFEROL 1,000 UNIT TAB PO SCH (11:26)
[2017-04-04 12:37] LABS: Glucose,Whole Blood 160 mg/dL (75-99)
[2017-04-04] MEDS: amLODIPine 5 MG TAB PO SCH (14:47)
--- NOTE | 2017-04-04 16:36 | P.PN ---
Subjective This is a 61-year-old female with history of essential hypertension, mitral valve prolapse with mild mitral regurgitation is admitted to the hospital after sustaining a fall. Patient apparently was trying to walk up stairs and fell backwards. Patient injured her wrist and her right hip. Patient currently has had another trauma to her right knee with the meniscal tear. Patient was noted to have a fracture of the hip patient was admitted to the orthopedic service. Patient denies any current tobacco use however does have a previous history of it. Was able to walk about 1 mile without any chest pains difficulty breathing. Patient's EKG does not show any ST-T wave changes however meets criteria for left ventricular hypertrophy due to hypertensive disease At this time patient denies having any chest pain difficulty breathing headaches blurry vision nausea vomiting abdominal pain diarrhea. Patient has a Solo catheter in place Chest x-ray did not reveal any acute abnormalities in the emergency room. 04/04/2017 Appears to be doing well no new overnight events reported Exam Appearance alert oriented 3 Neck is supple no JVD Heart a trace systolic murmur appreciated at the apex regular rate and rhythm Lungs good air movement clear to auscultation bilaterally no rhonchi wheezing or crackles Abdomen soft nontender no organomegaly Solo catheter in place 1+ pitting edema bilaterally Right lower extremity is inverted tender to palpation with joint flexion Neuro is able to move all 4 extremities. No focal deficits could be appreciated. Assessment and Plan Plan: #1 mechanical fall status post right hip fracture #2 essential hypertension #3 dyslipidemia #4 mitral valve prolapse #5 mitral regurgitation secondary to above #6 remote history of tobacco use #7 right knee meniscal tear Plan Continue ongoing care DVT prophylaxis amlodipine 5 mg will be added as patient does continue to have elevated blood pressures Objective - Vital Signs Vital signs: Vital Signs Temp 97.6 F 04/04/17 14:00 Pulse 88 04/04/17 14:00 Resp 16 04/04/17 08:00 BP 154/76 04/04/17 14:00 Pulse Ox 97 04/04/17 14:00 Intake & Output 04/03/17 04/04/17 04/04/17 18:59 06:59 18:59 Intake Total 1655 1900 Output Total 480 2200 700 Balance 1175 -300 -700 Intake: IV 1155 Intake, IV Titration 500 900 Amount Clindamycin 900 mg In 100 Dextrose 5% in Water 50 ml @ 100 mls/hr IVPB Q6HR [facility] Rx#:[id number] Sodium Chloride 0.9% 1, 500 800 000 ml @ 100 mls/hr IV . Q10H [facility] Rx#:[id number] Oral 1000 Output: Urine 450 2200 700 Uretheral (Solo) 700 Estimated Blood Loss 30 Other: Voiding Method Indwelling Catheter Indwelling Catheter Indwelling Catheter # Voids 2 - Labs CBC & Chem 7: 04/04/17 06:29 04/04/17 06:29 Labs: Abnormal Lab Results - Last 24 Hours (Table) 04/03/17 04/03/17 04/04/17 Range/Units 17:18 20:16 06:29 RBC (3.80-5.40) m/uL Hgb (11.4-16.0) gm/dL Hct (34.0-46.0) % Lymphocytes # (1.0-4.8) k/uL Glucose (74-99) mg/dL POC Glucose (mg/dL) 112 H 181 H (75-99) mg/dL Hemoglobin A1c 6.6 H (4.2-6.1) % Total Protein (6.3-8.2) g/dL Albumin (3.5-5.0) g/dL 04/04/17 04/04/17 04/04/17 Range/Units 06:29 06:29 06:50 RBC 3.35 L (3.80-5.40) m/uL Hgb 10.5 L (11.4-16.0) gm/dL Hct 31.4 L (34.0-46.0) % Lymphocytes # 0.9 L (1.0-4.8) k/uL Glucose 111 H (74-99) mg/dL POC Glucose (mg/dL) 127 H (75-99) mg/dL Hemoglobin A1c (4.2-6.1) % Total Protein 5.2 L (6.3-8.2) g/dL Albumin 3.1 L (3.5-5.0) g/dL 04/04/17 Range/Units 12:35 RBC (3.80-5.40) m/uL Hgb (11.4-16.0) gm/dL Hct (34.0-46.0) % Lymphocytes # (1.0-4.8) k/uL Glucose (74-99) mg/dL POC Glucose (mg/dL) 160 H (75-99) mg/dL Hemoglobin A1c (4.2-6.1) % Total Protein (6.3-8.2) g/dL Albumin (3.5-5.0) g/dL
[2017-04-04 16:59] LABS: Glucose,Whole Blood 248 mg/dL (75-99)
[2017-04-04 19:48] LABS: Glucose,Whole Blood 157 mg/dL (75-99)
[2017-04-05] MEDS: SODIUM CHLORIDE 0.9% 1,000 ML IV SCH ×2 (02:35→15:36)
[2017-04-05] MEDS: HYDROcodone/APAP 5-325MG 1 EACH TAB PO PRN ×4 (02:36→21:55)
[2017-04-05 06:57] LABS: Glucose,Whole Blood 136 mg/dL (75-99)
[2017-04-05] MEDS: INSULIN LISPRO (humaLOG) 300 UNIT/3 ML VIAL SQ SCH ×4 (07:21→21:53)
[2017-04-05] MEDS: ASCORBIC ACID 500 MG TAB PO SCH ×2 (08:32→21:46)
[2017-04-05] MEDS: amLODIPine 5 MG TAB PO SCH (08:32)
[2017-04-05] MEDS: PANTOPRAZOLE 40 MG TABLET PO SCH (08:32)
[2017-04-05] MEDS: LINAGLIPTIN 5 MG TABLET PO SCH (08:33)
[2017-04-05] MEDS: LISINOPRIL 20 MG TAB PO SCH (08:33)
[2017-04-05] MEDS: ENOXAPARIN 40 MG/0.4 ML SYRINGE SQ SCH (08:33)
[2017-04-05] MEDS: CALCIUM CARBONATE 500 MG CHEWABLE PO SCH ×3 (08:33→21:46)
[2017-04-05 12:04] LABS: Glucose,Whole Blood 160 mg/dL (75-99)
[2017-04-05] MEDS: metFORMIN 500 MG TAB PO SCH ×2 (12:14→21:46)
[2017-04-05] MEDS: CHOLECALCIFEROL 1,000 UNIT TAB PO SCH (12:14)
[2017-04-05 14:19] LABS: Basophils # (A) 0.1 k/uL (0-0.2); Basophils % (A) 1 %; CH 31.2; CHCM 33.8; Eosinophils # (A) 0.3 k/uL (0-0.7); Eosinophils % (A) 2 %; HCT 30.7 % (34.0-46.0); HDW 2.58; HGB 10.7 gm/dL (11.4-16.0); Luc # (Auto) 0.39; Luc % (Auto) 3; Lymphocytes # (A) 1.3 k/uL (1.0-4.8); Lymphocytes % (A) 10 %; MCH 32.4 pg (25.0-35.0); MCHC 34.9 g/dL (31.0-37.0); MCV 92.7 fL (80.0-100.0); Mean Platelet Volume 7.8; Monocytes # (A) 0.6 k/uL (0-1.0); Monocytes % (A) 5 %; Neutrophils % (A) 81 %; RBC 3.31 m/uL (3.80-5.40); RDW 12.9 % (11.5-15.5); WBC 13.7 k/uL (3.8-10.6); WBC (Perox) 14.78
[2017-04-05] MEDS: DULoxetine HCL 60 MG CAPSULE.DR PO SCH (15:55)
[2017-04-05] MEDS: ARIPiprazole 5 MG TAB PO SCH (15:55)
[2017-04-05 16:53] LABS: Glucose,Whole Blood 151 mg/dL (75-99)
--- NOTE | 2017-04-05 17:10 | P.PN ---
Subjective Principal diagnosis: Right hip fracture, right wrist fracture, status post operative fixation of right subtrochanteric femur fracture. This is a pleasant 61-year-old female who is status post operative fixation of right subtrochanteric femur fracture. This is postoperative day #2. Patient states her pain is well-controlled in the right hip and the right wrist. Patient is tolerating the wrist splint well. Patient denies any numbness, weakness, tingling, calf tenderness, shortness of breath or chest pain. Objective - Vital Signs Vital signs: Vital Signs Temp 97.8 F 04/05/17 15:17 Pulse 72 04/05/17 15:17 Resp 16 04/05/17 15:17 BP 128/56 04/05/17 15:17 Pulse Ox 96 04/05/17 15:17 Intake & Output 04/04/17 04/05/17 04/05/17 18:59 06:59 18:59 Intake Total 1530 Output Total 700 Balance -700 1530 Weight 83.915 kg Intake: Oral 1530 Output: Urine 700 Uretheral (Solo) 700 Other: Voiding Method Indwelling Catheter Bedpan Bedpan # Voids 2 5 2 # Bowel Movements 0 - Exam On exam patient is in no acute distress and is alert and oriented 3. The dressings over the right hip incisions are intact with no drainage present. Patient has full foot and ankle motion. There is some pain with right ankle motion. Her status to the right lower extremity is intact. Right wrist splint is intact. Neurovascular status intact to the right upper extremity. - Labs CBC & Chem 7: 04/05/17 13:35 04/04/17 06:29 Labs: Abnormal Lab Results - Last 24 Hours (Table) 04/03/17 04/04/17 04/05/17 Range/Units 08:58 19:46 06:48 WBC (3.8-10.6) k/uL RBC (3.80-5.40) m/uL Hgb (11.4-16.0) gm/dL Hct (34.0-46.0) % Neutrophils # (1.3-7.7) k/uL POC Glucose (mg/dL) 157 H 136 H (75-99) mg/dL Vitamin D 25-Hydroxy 20.6 L (30.0-100.0) ng/mL 09/12/1504/05/17 04/05/17 Range/Units 11:45 13:35 16:30 WBC 13.7 H (3.8-10.6) k/uL RBC 3.31 L (3.80-5.40) m/uL Hgb 10.7 L (11.4-16.0) gm/dL Hct 30.7 L (34.0-46.0) % Neutrophils # 11.0 H (1.3-7.7) k/uL POC Glucose (mg/dL) 160 H 151 H (75-99) mg/dL Vitamin D 25-Hydroxy (30.0-100.0) ng/mL Assessment and Plan (1) Fracture of hip Status: Acute (2) Wrist fracture Status: Acute (3) Right knee pain Status: Acute Plan: #1. Toe-touch weightbearing to the right lower extremity. #2. Continue DVT prophylaxis with Lovenox 40 mg daily 4 weeks. #3. Appreciate input from internal medicine. #4. Continue physical therapy. #5. Continue right wrist splint. #6. Daily dressing changes. #7. X-rays of the right ankle are negative for any fracture dislocation. #8. Discharge planning
--- NOTE | 2017-04-05 20:54 | XR ---
PROCEDURE: XR knee limited RT DATE AND TIME: 04/05/2017 5:45 PM REFERRING PHYSICIAN: Curt Nevarez CLINICAL INDICATION: PHH, knee pain s/p fall TECHNIQUE: Department protocol. COMPARISON: None FINDINGS: AP and crosstable lateral views were obtained. Distal femur IM diana appears intact as visualized. The bones and joints and soft tissues are unremarkable. IMPRESSION: NO ACUTE PROCESS.
[2017-04-05 21:43] LABS: Glucose,Whole Blood 153 mg/dL (75-99)
[2017-04-06] MEDS: ALPRAZolam 0.5 MG TAB PO SCH ×2 (00:59→22:24)
[2017-04-06 06:55] LABS: Glucose,Whole Blood 122 mg/dL (75-99)
[2017-04-06] MEDS: INSULIN LISPRO (humaLOG) 300 UNIT/3 ML VIAL SQ SCH ×4 (08:01→21:20)
[2017-04-06] MEDS: ENOXAPARIN 40 MG/0.4 ML SYRINGE SQ SCH (08:02)
[2017-04-06] MEDS: LINAGLIPTIN 5 MG TABLET PO SCH (08:02)
[2017-04-06] MEDS: CALCIUM CARBONATE 500 MG CHEWABLE PO SCH ×3 (08:02→21:20)
[2017-04-06] MEDS: DULoxetine HCL 60 MG CAPSULE.DR PO SCH (08:02)
[2017-04-06] MEDS: ARIPiprazole 5 MG TAB PO SCH (08:03)
[2017-04-06] MEDS: metFORMIN 500 MG TAB PO SCH ×2 (08:03→21:20)
[2017-04-06] MEDS: LISINOPRIL 20 MG TAB PO SCH (08:03)
[2017-04-06] MEDS: ASCORBIC ACID 500 MG TAB PO SCH ×2 (08:03→21:20)
[2017-04-06] MEDS: amLODIPine 5 MG TAB PO SCH (08:03)
[2017-04-06] MEDS: PANTOPRAZOLE 40 MG TABLET PO SCH (08:03)
[2017-04-06] MEDS: HYDROcodone/APAP 5-325MG 1 EACH TAB PO PRN ×3 (08:05→21:20)
[2017-04-06 11:14] LABS: Glucose,Whole Blood 135 mg/dL (75-99)
--- NOTE | 2017-04-06 12:34 | P.PN ---
Subjective This is a 61-year-old female with history of essential hypertension, mitral valve prolapse with mild mitral regurgitation is admitted to the hospital after sustaining a fall. Patient apparently was trying to walk up stairs and fell backwards. Patient injured her wrist and her right hip. Patient currently has had another trauma to her right knee with the meniscal tear. Patient was noted to have a fracture of the hip patient was admitted to the orthopedic service. Patient denies any current tobacco use however does have a previous history of it. Was able to walk about 1 mile without any chest pains difficulty breathing. Patient's EKG does not show any ST-T wave changes however meets criteria for left ventricular hypertrophy due to hypertensive disease At this time patient denies having any chest pain difficulty breathing headaches blurry vision nausea vomiting abdominal pain diarrhea. Patient has a Solo catheter in place Chest x-ray did not reveal any acute abnormalities in the emergency room. 04/04/2017 Appears to be doing well no new overnight events reported Exam Appearance alert oriented 3 Neck is supple no JVD Heart a trace systolic murmur appreciated at the apex regular rate and rhythm Lungs good air movement clear to auscultation bilaterally no rhonchi wheezing or crackles Abdomen soft nontender no organomegaly Solo catheter in place 1+ pitting edema bilaterally Right lower extremity is inverted tender to palpation with joint flexion Neuro is able to move all 4 extremities. No focal deficits could be appreciated. Assessment and Plan Plan: #1 mechanical fall status post right hip fracture #2 essential hypertension #3 dyslipidemia #4 mitral valve prolapse #5 mitral regurgitation secondary to above #6 remote history of tobacco use #7 right knee meniscal tear? Rate right radial styloid displacement status post fixture Pressures are stable Discharge to care home with the prophylaxis for 4 weeks. Med reconciliation was done clear for discharge from my perspective. Objective - Vital Signs Vital signs: Vital Signs Temp 98 F 04/06/17 04:43 Pulse 77 04/06/17 08:00 Resp 17 04/06/17 08:00 BP 132/64 04/06/17 04:43 Pulse Ox 92 L 04/06/17 04:43 Intake & Output 04/05/17 04/06/17 04/06/17 18:59 06:59 18:59 Intake Total 960 180 Output Total 1600 Balance -640 180 Intake: Oral 960 180 Output: Urine 1600 Other: Voiding Method Bedpan Bedpan Bedpan # Voids 2 3 1 - Labs CBC & Chem 7: 04/05/17 13:35 04/04/17 06:29 Labs: Abnormal Lab Results - Last 24 Hours (Table) 04/05/17 04/05/17 04/05/17 Range/Units 13:35 16:30 21:32 WBC 13.7 H (3.8-10.6) k/uL RBC 3.31 L (3.80-5.40) m/uL Hgb 10.7 L (11.4-16.0) gm/dL Hct 30.7 L (34.0-46.0) % Neutrophils # 11.0 H (1.3-7.7) k/uL POC Glucose (mg/dL) 151 H 153 H (75-99) mg/dL 04/06/17 04/06/17 Range/Units 06:52 11:11 WBC (3.8-10.6) k/uL RBC (3.80-5.40) m/uL Hgb (11.4-16.0) gm/dL Hct (34.0-46.0) % Neutrophils # (1.3-7.7) k/uL POC Glucose (mg/dL) 122 H 135 H (75-99) mg/dL
[2017-04-06] MEDS: CHOLECALCIFEROL 1,000 UNIT TAB PO SCH (13:05)
--- NOTE | 2017-04-06 15:53 | P.DS ---
Providers Date of admission: 04/03/17 03:31 Expected date of discharge: 04/06/17 Attending physician: Dwight Thompson Consults: 04/03/17 03:27 Consult Physician Urgent Consulting Provider: Roberto Velez Consult Reason/Comments: Preop clearance Do you want consulting provider notified?: Yes, Notify in am Primary care physician: Krishna Moya - Discharge Diagnosis(es) (1) Fracture of hip Patient is a pleasant 61-year-old female who was admitted to the emergency department on 04/03/2017 after a fall at home resulted in hip pain and right wrist pain.. X-rays in the emergency department showed a right some sub/ intertrochanteric hip fracture as well as a radial styloid fracture. She was cleared to undergo surgery where she underwent a right intramedullary IT nail that she tolerated well without complication. Her postoperative hospital course has remained without complication. On day of discharge she desires transfer to an extended care facility. Day of discharge she is afebrile, vital signs stable, labs within acceptable ranges, wounds are benign, neurovascular status intact, calf is soft nontender, abdominal is soft nontender, tolerating by mouth meds and diet, voiding without difficulty, positive flatus, denying new complaints, and pain controlled with oral pain medication. Review of systems is negative for fever, chills, chest pain, shortness breath, numbness, tingling, calf pain, slurred speech, headaches, dizziness or other. Current Visit: Yes Status: Acute Priority: Medium Procedures: Right IT nail Patient Condition at Discharge: Stable Plan - Discharge Summary New Discharge Prescriptions: New amLODIPine [Norvasc] 5 mg PO DAILY #0 tab Enoxaparin [Lovenox] 40 mg SQ DAILY #30 syringe HYDROcodone/APAP 5-325MG [[place] 5-325] 2 each PO Q6HR PRN #20 tab PRN Reason: Pain Scale 6 To 10 Continue Cyclobenzaprine [Flexeril] 10 mg PO TID #12 tab Ibuprofen [Motrin] 200 - 400 mg PO Q6HR PRN PRN Reason: Pain sitaGLIPtin [Januvia] 100 mg PO DAILY metFORMIN HCL [Glucophage] 500 mg PO AC-BID Pantoprazole Sodium [Protonix] 40 mg PO BID Lisinopril [Zestril] 20 mg PO DAILY DULoxetine HCL [Cymbalta] 60 mg PO DAILY ARIPiprazole [Abilify] 5 mg PO DAILY Atorvastatin [Lipitor] 40 mg PO DAILY ALPRAZolam [Xanax] 2 mg PO HS #5 Discontinued Naproxen 500 mg PO TID #20 tablet oxyCODONE-APAP 10-325MG [Percocet 10-325 mg] 1 tab PO QID PRN PRN Reason: Pain Discharge Medication List ARIPiprazole [Abilify] 5 mg PO DAILY 04/01/17 [History] Cyclobenzaprine [Flexeril] 10 mg PO TID #12 tab 04/01/17 [Rx] DULoxetine HCL [Cymbalta] 60 mg PO DAILY 04/01/17 [History] Ibuprofen [Motrin] 200 - 400 mg PO Q6HR PRN 04/01/17 [History] Lisinopril [Zestril] 20 mg PO DAILY 04/01/17 [History] Pantoprazole Sodium [Protonix] 40 mg PO BID 04/01/17 [History] metFORMIN HCL [Glucophage] 500 mg PO AC-BID 04/01/17 [History] sitaGLIPtin [Januvia] 100 mg PO DAILY 04/01/17 [History] Atorvastatin [Lipitor] 40 mg PO DAILY 04/05/17 [History] ALPRAZolam [Xanax] 2 mg PO HS #5 04/06/17 [Rx] Enoxaparin [Lovenox] 40 mg SQ DAILY #30 syringe 04/06/17 [Rx] HYDROcodone/APAP 5-325MG [[place] 5-325] 2 each PO Q6HR PRN #20 tab 04/06/17 [Rx] amLODIPine [Norvasc] 5 mg PO DAILY #0 tab 04/06/17 [Rx] Follow up Appointment(s)/Referral(s): Krishna Moya III, MD [Primary Care Provider] - 04/08/17 1:30 pm Dwight Thompson MD [Medical Doctor] - 04/21/17 1:20 pm Activity/Diet/Wound Care/Special Instructions: Touchdown weightbearing Keep wound clean and dry Follow-up with Dr. Thompson in office Take meds as directed Discharge Disposition: TRANSFER TO SNF/ECF
[2017-04-06 17:48] LABS: Glucose,Whole Blood 120 mg/dL (75-99)
[2017-04-06 20:52] LABS: Glucose,Whole Blood 149 mg/dL (75-99)
[2017-04-07] MEDS: HYDROcodone/APAP 5-325MG 1 EACH TAB PO PRN ×3 (03:18→13:55)
[2017-04-07 07:48] LABS: Glucose,Whole Blood 111 mg/dL (75-99)
[2017-04-07] MEDS: INSULIN LISPRO (humaLOG) 300 UNIT/3 ML VIAL SQ SCH ×2 (08:04→11:41)
[2017-04-07 08:12] VITALS: BP 119/66; PULSE 67; RESP 17; TEMP 98.3
[2017-04-07] MEDS: ARIPiprazole 5 MG TAB PO SCH (08:38)
[2017-04-07] MEDS: CALCIUM CARBONATE 500 MG CHEWABLE PO SCH (08:38)
[2017-04-07] MEDS: PANTOPRAZOLE 40 MG TABLET PO SCH (08:38)
[2017-04-07] MEDS: ASCORBIC ACID 500 MG TAB PO SCH (08:38)
[2017-04-07] MEDS: metFORMIN 500 MG TAB PO SCH (08:39)
[2017-04-07] MEDS: amLODIPine 5 MG TAB PO SCH (08:39)
[2017-04-07] MEDS: LINAGLIPTIN 5 MG TABLET PO SCH (08:39)
[2017-04-07] MEDS: DULoxetine HCL 60 MG CAPSULE.DR PO SCH (08:39)
[2017-04-07] MEDS: SODIUM CHLORIDE 0.9% 1,000 ML IV SCH ×3 (08:39→08:46)
[2017-04-07] MEDS: ENOXAPARIN 40 MG/0.4 ML SYRINGE SQ SCH (08:41)
[2017-04-07] MEDS: LISINOPRIL 20 MG TAB PO SCH (08:47)
[2017-04-07 11:41] LABS: Glucose,Whole Blood 112 mg/dL (75-99)
[2017-04-07] MEDS: CHOLECALCIFEROL 1,000 UNIT TAB PO SCH (11:42)
== END 2017-04-07 14:08 | DRG 481 ==
LOC: EC 02:50 → 3SUR 03:31
PROVIDERS: ADMIT Orthopaedic Surgery; ATTEND Orthopaedic Surgery
PROC: 0QS634Z Reposition Right Upper Femur with Internal Fixation Device, Percutaneous Approach (ICD-10-PCS; principal; 2017-04-03 09:33)
DX: S72.21XA Displaced subtrochanteric fracture of right femur, initial encounter for closed fracture (principal); S52.511A Displaced fracture of right radial styloid process, initial encounter for closed fracture; I10 Essential (primary) hypertension; E11.9 Type 2 diabetes mellitus without complications; G89.29 Other chronic pain; M54.9 Dorsalgia, unspecified; M54.2 Cervicalgia; I34.0 Nonrheumatic mitral (valve) insufficiency; I34.1 Nonrheumatic mitral (valve) prolapse; E78.5 Hyperlipidemia, unspecified; W10.9XXA Fall (on) (from) unspecified stairs and steps, initial encounter; S83.206A Unspecified tear of unspecified meniscus, current injury, right knee, initial encounter; Y93.01 Activity, walking, marching and hiking; Z79.899 Other long term (current) drug therapy; Z87.891 Personal history of nicotine dependence; Z79.84 Long term (current) use of oral hypoglycemic drugs; Z79.1 Long term (current) use of non-steroidal anti-inflammatories (NSAID); Z79.891 Long term (current) use of opiate analgesic; Z88.0 Allergy status to penicillin
CPT/HCPCS: 71010; 80053; 82040; 82306; 83036; 85025; 85610; 85730; 86850; 86900; 86901; 93005; 94760; 96374; 99285

== ENCOUNTER → 2018-07-08 | Outpatient (CLI) | payer BC ==
--- NOTE | 2018-07-09 21:50 | MR ---
MRI CERVICAL SPINE: CLINICAL HISTORY: Cervicalgia per order. Headaches with pain into shoulders since 1999 per patient. TECHNIQUE: Multiplanar, multisequence imaging of the cervical spine is performed without IV contrast. COMPARISON: Cervical spine x-ray March 21, 2013. FINDINGS: Sagittal images of the cervical spine show the craniocervical junction to appear within nor mal limits. The cervical and upper thoracic spinal cord is normal in caliber and signal. Vertebral alignment is straightened. There is grade 1 retrolisthesis of C5 on C6 and C6 on C7. Mild to moderate disc space narrowing C5-C6 and C6-C7 levels is felt present with mild anterior spurring . The verteb ral body and intravertebral disk heights otherwise are normal. Posterior disc herniations are seen on sagittal images C4-C5 through C7-T1 levels effacing the anterior thecal sac. The bone marrow signal intensity is within normal limits. Axial images show the C2-C3 and C3-C4 levels to appear within normal limits. Axial images at C4-C5 levels show broad-based right paracentral disc protrusion effacing the anterior thecal sac nearly up to the ventral surface of spinal cord on axial image 30, bilateral neural nimisha lena are patent. Axial images at C5-C6 levels show spondylolisthesis seen broad-based posterior disc protrusion effaci ng the anterior thecal sac and causing moderate bilateral neural foraminal narrowing. Axial images at the C6-C7 level shows spondylolisthesis and broad-based posterior disc protrusion eff aces the anterior thecal sac and causing [id number] bilateral neural foraminal narrowing. Axial images at C7-T1 levels show broad-based right central disc protrusion effaces the anterior thec al sac and causing asymmetric mild right-sided neural foraminal narrowing. IMPRESSION: Straightening of cervical spine with multilevel degenerative changes mid to lower cervica l levels as detailed above most prominent at C5-C6 and C6-C7 levels.
== END ==
LOC: RADMRIMAIN 14:11
PROVIDERS: ATTEND Psychiatry & Neurology Neurology
DX: M47.812 Spondylosis without myelopathy or radiculopathy, cervical region (principal)
CPT/HCPCS: 72141